=== PATIENT | female | born 1995 | race Two or more races ===

== ENCOUNTER 2018-03-13 02:36 | Inpatient (IN) | payer SELFPAY ==
[~2018-03-13] VITALS: Ht 157.5 cm; Wt 64.4 kg
[2018-03-13 03:49] VITALS: BP 113/76
[2018-03-13] MEDS ORDERED: LIDOCAINE 1% PF 30 ML VIAL. INJ PRN (04:15)
[2018-03-13] MEDS ORDERED: 0.9 % SODIUM CHLORIDE 10 ML DISP.SYRIN. IV PRN ×4 (04:15→17:45)
[2018-03-13] MEDS ORDERED: BUTORPHANOL 2 MG/ML VIAL. IV PRN (04:15)
[2018-03-13] MEDS ORDERED: ACETAMINOPHEN 325 MG TABLET. PO PRN ×3 (04:15→17:45)
[2018-03-13] MEDS ORDERED: OXYTOCIN 30 UNIT/500 ML PREMIX 500 ML IV PRN ×5 (04:15→17:45)
[2018-03-13] MEDS ORDERED: MAG HYDROX/ALUMINUM HYD/SIMETH 30 ML ORAL.SUSP PO PRN ×4 (04:15→17:45)
[2018-03-13] MEDS ORDERED: TERBUTALINE 1 MG/ML VIAL. SQ PRN (04:15)
[2018-03-13] MEDS ORDERED: IBUPROFEN 800 MG TABLET. PO PRN ×2 (04:15→15:15)
[2018-03-13] MEDS ORDERED: ONDANSETRON PF 4 MG/2 ML VIAL. IV PRN ×2 (04:15→15:15)
[2018-03-13 04:24] LABS: BASO % 0 % (0-3); EOS % 0 % (0-3); HEMATOCRIT 34.4 % (36.0-47.0); HEMOGLOBIN 12.2 g/dL (12.0-15.5); LYMPH # 1.7 x10^3/uL (1.0-4.8); LYMPH % 17 % (24-48); MEAN CORPUSCULAR HEMOGLOBIN 34 pg (25-35); MEAN CORPUSCULAR HGB CONC 35 g/dL (31-37); MEAN CORPUSCULAR VOLUME 95 fL (79-100); MONO # 0.6 x10^3/uL (0.0-1.1); MONO % 6 % (0-9); NEUT # 7.8 x10^3uL (1.8-7.7); NEUT % 77 % (31-73); PLATELET COUNT 365 x10^3/uL (140-400); RED BLOOD COUNT 3.61 x10^6/uL (3.50-5.40); WHITE BLOOD COUNT 10.2 x10^3/uL (4.0-11.0)
[2018-03-13] MEDS ORDERED: DINOPROSTONE 10 MG SUPP.VAG VG ONE (05:00)
[2018-03-13] MEDS ORDERED: AMPICILLIN SODIUM 2 GM in IV NORMAL SALINE 100ML 100 ML IV ONE (05:00)
[2018-03-13] MEDS: IV RINGERS,LACTATED 1000ML 1,000 ML IV SCH ×2 (05:09→09:18)
[2018-03-13] MEDS: AMPICILLIN SODIUM 1 GM in IV NORMAL SALINE 50ML 50 ML IV SCH ×2 (09:18→14:05)
[2018-03-13] MEDS: fentaNYL PF VIAL 100 MCG/2 ML VIAL IV PRN ×2 (11:56→14:21)
[2018-03-13] MEDS ORDERED: OXYTOCIN PREMIX 30 UNIT/500 ML BAG. IV ONE (15:00)
[2018-03-13] MEDS ORDERED: MMR per PROTOCOL. MC PRN (15:15)
[2018-03-13] MEDS ORDERED: diphenhydrAMINE ORAL ELIXIR 12.5 MG/5 ML ML PO PRN (15:15)
[2018-03-13] MEDS ORDERED: MAGNESIUM HYDROXIDE 2,400 MG/30 ML ORAL.SUSP. PO PRN ×3 (15:15→17:45)
[2018-03-13] MEDS ORDERED: diphenhydrAMINE HCL 25 MG CAPSULE PO PRN ×2 (15:15→17:45)
[2018-03-13] MEDS ORDERED: PHENYLEPH/MINERAL OIL/PETROLAT RECTAL OINTMENT 28GM TUBE. RC PRN ×2 (15:15→17:45)
[2018-03-13] MEDS ORDERED: SIMETHICONE 80 MG TAB.CHEW PO PRN ×3 (15:15→17:45)
[2018-03-13] MEDS ORDERED: ZOLPIDEM 5 MG TABLET. PO PRN ×3 (15:15→17:45)
[2018-03-13] MEDS ORDERED: HYDROCORTISONE 1% TOPICAL OINTMENT 30GM TUBE. TP PRN ×2 (15:15→17:45)
[2018-03-13] MEDS ORDERED: oxyCODONE/APAP 5/325 1 TAB TABLET PO PRN ×2 (15:15)
--- NOTE | 2018-03-13 15:21 | PDOC1 ---
OB - History Hx of Present Care: Good Care Ultrasounds: Normal mid trimester US Obstetrical Complications: None Medical Complications: None Past Family/Social History * Past Medical, Surgical, Family and Obstetric Histories reviewed from chart. Blood Type: A+ Rubella: Immune RPR/VDRL: Negative GBS Status: Negative HBsAG: Negative OB - Chief Complaint & HPI Date of Admission: Date of Admission: Mar 13, 2018 at 02:36 Chief Complaint/History : 1 Para: 0 EDC: Mar 10, 2018 Reason for admission: active labor, rupture of membranes Admission Nurse Assessment Rev: Yes OB - Admission Exam Physical Exam Vitals: VS - Last 72 Hours, by Label Date Time Temp Pulse Resp B/P (MAP) Pulse Ox O2 Delivery O2 Flow Rate FiO2 03/13/18 14:21 18 Room Air 03/13/18 11:56 18 98 Room Air 03/13/18 03:49 99.3 97 20 113/76 (88) 98 Room Air 99.3 HEENT: Normal, Nasal Mucosa Normal, Oropharynx Normal, Moist Membranes, Fontanelles Normal Heart: Regular Rate Lungs: Clear, Equal Abdomen: Gravid Extremities: Normal Pulses, No tenderness or swelling Reflexes: Normal Cervical Dilatation: 3cm Effacement: 50% Station: -2 Membranes: Ruptured Amniotic Fluid: Clear Heart Rate: Normal Accelerations: Accelerations Present Short Term Variability: Present Intensity: Moderate Assessment/Plan Assessment/Plan TIUP Labor ACS JEFFREY ELIZABETH MD Mar 13, 2018 15:21
[2018-03-13] MEDS ORDERED: ceFAZolin SODIUM IV Push 1 GM VIAL. IVP SCH (16:00)
[2018-03-13] MEDS ORDERED: FERROUS SULFATE 325 MG TABLET. PO SCH (17:00)
--- NOTE | 2018-03-13 17:42 | PDOC ---
VAGINAL DELIVERY DATE DATE: 03/13/18 TIME: 17:39 : 1 EDC: Mar 10, 2018 VAGINAL DELIVERY: VTX VACCUM ASSISTED: No PLACENTA: Spontaneous SEX: Male WEIGHT 714/ Nuchal Cord: Yes, Times 1, Loose Amniotic Fluid: Clear PAIN: Natural EPISIOTOMY: Yes EXTENSION: No EBL 300cc COMPLICATIONS None CONDITION stable Signs of Intrauterine Infectio: None Shoulder Dystocia: No DIAGNOSIS TIJEFFREY Segovia MD Mar 13, 2018 17:42
[2018-03-13] MEDS ORDERED: IBUPROFEN 800 MG TABLET. PO SCH (17:45)
[2018-03-13] MEDS ORDERED: BENZOCAINE 20% TOPICAL AEROSOL SPRAY 57GM CAN. TP PRN (17:45)
[2018-03-13] MEDS: IBUPROFEN 800 MG TABLET. PO SCH (20:08)
[2018-03-13] MEDS: BENZOCAINE 20% TOPICAL AEROSOL SPRAY 57GM CAN. TP PRN (20:09)
[2018-03-13 21:15] VITALS: BP 98/61
[2018-03-13] MEDS ORDERED: ceFAZolin SODIUM 1 GM in IV DEXTROSE 5% 50 ML IV SCH (22:00)
[2018-03-13 22:21] VITALS: BP 96/64
[2018-03-14 05:31] LABS: BASO % 0 % (0-3); EOS % 0 % (0-3); HEMATOCRIT 28.2 % (36.0-47.0); HEMOGLOBIN 9.7 g/dL (12.0-15.5); LYMPH # 2.2 x10^3/uL (1.0-4.8); LYMPH % 12 % (24-48); MEAN CORPUSCULAR HEMOGLOBIN 33 pg (25-35); MEAN CORPUSCULAR HGB CONC 34 g/dL (31-37); MEAN CORPUSCULAR VOLUME 96 fL (79-100); MONO # 1.4 x10^3/uL (0.0-1.1); MONO % 8 % (0-9); NEUT # 15.1 x10^3uL (1.8-7.7); NEUT % 80 % (31-73); PLATELET COUNT 291 x10^3/uL (140-400); RED BLOOD COUNT 2.94 x10^6/uL (3.50-5.40); RED CELL DISTRIBUTION WIDTH 13.9 % (11.5-14.5); WHITE BLOOD COUNT 18.8 x10^3/uL (4.0-11.0)
[2018-03-14] MEDS ORDERED: FERROUS SULFATE 325 MG TABLET. PO SCH (08:00)
[2018-03-14 11:20] VITALS: BP 103/69
[2018-03-14 11:28] LABS: % BANDS 19 % (0-9); % LYMPHS 11 % (24-48); % MONOS 6 % (0-10); % SEGS 64 % (35-66)
[2018-03-14 11:29] LABS: PLT ESTIMATE ADEQUATE (ADEQUATE)
[2018-03-14] MEDS: DOCUSATE SODIUM 100 MG CAPSULE. PO PRN ×2 (12:25→18:48)
[2018-03-14] MEDS: IBUPROFEN 800 MG TABLET. PO SCH ×2 (12:25→18:49)
[2018-03-14] MEDS: FERROUS SULFATE 325 MG TABLET. PO SCH ×2 (12:25→18:48)
[2018-03-14 15:30] VITALS: BP 101/66
--- NOTE | 2018-03-14 19:09 | PDOC ---
Provider Note Provider Note Doing well VSS Uterus NTTP FU in AM JEFFREY ELIZABETH MD Mar 14, 2018 19:09
[2018-03-14 21:00] VITALS: BP 111/67
[2018-03-15 06:35] VITALS: BP 110/66
--- NOTE | 2018-03-15 08:55 | PDOC3 ---
OB DISCHARGE SUMMARY DATE OF ADMISSION: 03/13/18 DATE OF DISCHARGE: 03/15/18 REASON FOR ADMISSION: Onset of labor INTRAPARTUM PROCEDURES: Spontanous Vag Deliv OPERATIONS: None DISCHARGE DIAGNOSIS: Term Delivered DISCHARGE INFORMATION: Activity (as tolerated), Diet (regular), Instructions ( pelvic rest x 6 wks), Discharge to (home) HOSPITAL COURSE term gestation delivered vaginally with no complications. CONDITION AT DISCHARGE stable SYMONE SIBLEY Jr, MD Mar 15, 2018 08:55
--- NOTE | 2018-03-15 08:56 | DISCH ---
DISCHARGE INSTRUCTIONS Condition on Discharge Condition on Discharge: Stable Activity After Discharge Activity Instructions for Disc: Activity as tolerated Bathing Instructions: Shower-keep dressing dry Lifting Instructions after Dis: No heavy lifting Driving Instructions after Dis: Do not drive today Diet after Discharge Diet after Discharge: Regular Contacting the DRJoanie after DC Call your doctor for: Concerns you may have Follow-Up Follow up with: Dr. Peck in 2 weeks. SYMONE SIBLEY Jr, MD Mar 15, 2018 08:56
[2018-03-15] MEDS ORDERED: HYDR-971 PO (08:58)
[2018-03-15] MEDS ORDERED: NAPR-683 PO (08:58)
[2018-03-15] MEDS: FERROUS SULFATE 325 MG TABLET. PO SCH (10:13)
[2018-03-15] MEDS: BENZOCAINE 20% TOPICAL AEROSOL SPRAY 57GM CAN. TP PRN (10:13)
[2018-03-15] MEDS: DOCUSATE SODIUM 100 MG CAPSULE. PO PRN (10:13)
[2018-03-15 11:17] VITALS: BP 105/65
[2018-03-15 14:55] VITALS: BP 105/74
== END 2018-03-15 15:00 | disposition home or self-care (01) | DRG 775 ==
LOC: 3 SO LND 02:36 → OBSVTOIN 02:36 → 3 NORTH 21:05
PROVIDERS: ADMIT Specialist; ATTEND Specialist
PROC: 10E0XZZ Delivery of Products of Conception, External Approach (ICD-10-PCS; principal; 2018-03-13)
PROC: 0W8NXZZ Division of Female Perineum, External Approach (ICD-10-PCS; 2018-03-13)
DX: O69.81X0 Labor and delivery complicated by cord around neck, without compression, not applicable or unspecified (principal); Z37.0 Single live birth; Z3A.40 40 weeks gestation of pregnancy
CPT/HCPCS: 36415; 85007; 85025; 86592; 86850; 86900; 86901; G0378; J0290; J2590; J3010; J7120